=== PATIENT | female | born 1965 | race Two or more races ===

== ENCOUNTER 2019-04-24 14:38 | Emergency (ER) | payer OTHER ==
[~2019-04-24] VITALS: Ht 154.9 cm; Wt 89.8 kg
[2019-04-24 14:55] LABS: BASOPHILS # (AUTO) 0.1 /CMM (0.0-0.2); BASOPHILS % (AUTO) 0.9 % (0.0-2.0); HEMATOCRIT 39 % (33-45); HEMOGLOBIN 12.4 g/dL (11.5-14.8); LYMPHOCYTES # (AUTO) 2.5 /CMM (0.8-4.8); LYMPHOCYTES % (AUTO) 41.2 % (20.0-44.0); MEAN CORPUSCULAR HGB CONC 32 g/dl (31.0-36.0); MEAN CORPUSCULAR VOLUME 80 fL (82-100); MONOCYTES # (AUTO) 0.3 /CMM (0.1-1.30); MONOCYTES % (AUTO) 5.4 % (2.0-12.0); NEUTROPHILS % (AUTO) 50.5 % (43.0-81.0); PLATELET COUNT (AUTO) 274 /CMM (150-450); RED BLOOD CELL COUNT(AUTO) 4.82 MIL/uL (4.0-5.2)
--- NOTE | 2019-04-24 14:56 | NUR ---
PER ADMITTING: PT HAS [facility]
[2019-04-24] MEDS ORDERED: MECLIZINE HCL 12.5 MG TABLET PO ONE (15:00)
[2019-04-24] MEDS ORDERED: IV NS 0.9% 1,000 ML BAG IV ONE (15:00)
[2019-04-24] MEDS ORDERED: ONDANSETRON HCL/PF 4 MG/2 ML VIAL IVP ONE (15:00)
[2019-04-24] MEDS ORDERED: ONDANSETRON HCL/PF 4 MG/2 ML VIAL ONE (15:01)
[2019-04-24] MEDS ORDERED: MECLIZINE HCL 25 MG TABLET ONE (15:01)
[2019-04-24 15:05] LABS: CARBON DIOXIDE 25 mmol/L (21-32); CHLORIDE 106 mmol/L (98-107); CREATININE 0.8 mg/dL (0.6-1.3); GLUCOSE 128 mg/dL (74-106); POTASSIUM 3.4 mmol/L (3.5-5.1); SODIUM SERUM 142 mmol/L (136-145); UREA NITROGEN, BLOOD 17 mg/dL (7-18)
--- NOTE | 2019-04-24 15:47 | NUR ---
[facility]ED [facility] AWAIT[facility] CALL BACK
[2019-04-24] MEDS ORDERED: ATOR10TA PO (15:51)
[2019-04-24] MEDS ORDERED: WARF6TAB23 PO (15:51)
[2019-04-24] MEDS ORDERED: CALC-534 PO (15:51)
--- NOTE | 2019-04-24 16:00 | NUR ---
Family at bedside-updated with plan of care
--- NOTE | 2019-04-24 18:09 | NUR ---
called [facility] per oliver business analyst intern pt Addendum: 04/24/19 at 1811 by WILFREDO no bed available yet
--- NOTE | 2019-04-24 18:59 | NUR ---
Pt denies any dizziness at this time, Resting comfortably in [facility]. Family at bedside. Able to tolerate po fluids. Await transfer to .
--- NOTE | 2019-04-24 19:21 | NUR ---
SAM w/JOSE Calvo
--- NOTE | 2019-04-24 19:52 | NUR ---
TRANSFER INFO: [facility] ETA [address] DR SEVERINO BATISTA, RN [phone]
[2019-04-24 20:00] VITALS: BP 127/75
--- NOTE | 2019-04-24 20:32 | NUR ---
PT WAS TRANSFERED TO IN STABLE CONDITION. ALL BELONGINGS PICKED UP
--- NOTE | 2019-04-24 20:39 | NUR ---
REPORT GIVEN TO IVELISSE AT
== END 2019-04-24 20:32 | disposition short-term general hospital (02) ==
LOC: ER 14:41
DX: R55 Syncope and collapse (principal); R42 Dizziness and giddiness; I10 Essential (primary) hypertension; I48.91 Unspecified atrial fibrillation; Z95.0 Presence of cardiac pacemaker; Z79.899 Other long term (current) drug therapy; Z79.01 Long term (current) use of anticoagulants
CPT/HCPCS: 36415; 70450; 71045; 80048; 84484; 85025; 93005 ×2; 96374; 99285; J2405; J7030 ×3; J8597